=== PATIENT | female | born 1965 | race Caucasian/White ===

== ENCOUNTER 2017-09-10 20:14 | Emergency (ER) | payer MEDICAID ==
[~2017-09-10] VITALS: Ht 157.5 cm; Wt 65.0 kg
[~2017-09-10 20:14] MED LIST: CLON-570 PO; CLOZ100 PO; IBUP-2070 PO; ISON300 PO; PYRI50 PO
[2017-09-10] MEDS ORDERED: TRAZ-219 PO (20:32)
[2017-09-10] MEDS ORDERED: HALO50VI4 IM (20:32)
[2017-09-10] MEDS ORDERED: BENZ1TAB10 PO (20:32)
[2017-09-10 20:41] LABS: EOSINOPHILS % (AUTO) 2.2 % (1.0-6.0); HEMATOCRIT 42.1 % (36-46); HEMOGLOBIN 14.4 g/dL (12.0-16.0); LYMPHOCYTES # (AUTO) 2.1 K/uL (1.0-4.8); MEAN CORPUSCULAR HEMOGLOBIN 28.4 pg (26.0-34.0); MEAN CORPUSCULAR HGB CONC 34.1 G/dL (31.0-37.0); MEAN CORPUSCULAR VOLUME 83 fL (80-100); MONOCYTES # (AUTO) 0.8 K/uL (0.1-1.0); NEUTROPHILS # (AUTO) 8.8 K/uL (1.8-7.7); NEUTROPHILS % (AUTO) 72.8 % (40.0-70.0); PLATELET COUNT (AUTO) 202 K/uL (150-450); RED BLOOD CELL COUNT(AUTO) 5.05 MIL/uL (4.00-5.20); RED CELL DISTRIBUTION WIDTH 16.6 % (11.5-14.5)
[2017-09-10 20:49] LABS: ANION GAP 9 mmol/L (8-16); CALCIUM, TOTAL 9.4 mg/dL (8.8-10.5); CARBON DIOXIDE 29 mmol/L (22-29); CHLORIDE 100 mmol/L (98-107); CREATININE 0.59 mg/dL (0.60-1.30); GLOMERULAR FILTR. RATE CALC > 60 mL/min (>60); GLUCOSE,RANDOM 101 mg/dL (70-110); POTASSIUM 3.8 mmol/L (3.5-5.1); SODIUM SERUM 138 mmol/L (136-145); UREA NITROGEN, BLOOD 5 mg/dL (7-18)
[2017-09-10 20:55] LABS: ALANINE AMINOTRANSFERASE 18 U/L (12-78); ALBUMIN 3.4 g/dL (3.4-5.0); ALKALINE PHOSPHATASE 106 U/L (46-116); ASPARTATE AMINOTRANSFERASE 15 U/L (15-37); BILIRUBIN,TOTAL 0.4 mg/dL (0.1-1.0); TOTAL PROTEIN, SERUM 7.7 g/dL (6.4-8.2)
[2017-09-10 21:06] LABS: AMPHET/METH SCREEN,URINE NEGATIVE (NEGATIVE); BARBITURATE SCREEN, URINE NEGATIVE (NEGATIVE); BENZODIAZEPINES SCREEN,URINE NEGATIVE (NEGATIVE); CANNABINOID SCREEN,URINE NEGATIVE (NEGATIVE); COCAINE SCREEN,URINE NEGATIVE (NEGATIVE); METHADONE SCREEN, URINE NEGATIVE (NEGATIVE); OPIATE SCREEN,URINE NEGATIVE (NEGATIVE)
[2017-09-10 21:08] LABS: PHENCYCLIDINE SCREEN,URINE NEGATIVE (NEGATIVE)
[2017-09-10] MEDS ORDERED: HALOPERIDOL 5 MG TABLET PO ONE (21:30)
[2017-09-10] MEDS ORDERED: LORazepam 2 MG TABLET PO ONE (21:30)
[2017-09-10] MEDS ORDERED: BENZTROPINE MESYLATE 2 MG TABLET PO ONE (21:30)
[2017-09-10 22:46] VITALS: BP 125/73
== END 2017-09-10 23:16 | disposition home or self-care (01) ==
LOC: EMS 20:14
DX: F41.9 Anxiety disorder, unspecified (principal); F20.9 Schizophrenia, unspecified; F17.210 Nicotine dependence, cigarettes, uncomplicated
CPT/HCPCS: 36415; 80053; 80307; 85025; 99284; 99406; G0480

== ENCOUNTER 2017-09-12 18:48 | Inpatient (IN) | payer MEDICAID ==
[~2017-09-12] VITALS: Ht 165.1 cm; Wt 59.4 kg
[~2017-09-12 18:48] MED LIST changes: +BENZ1TAB10 PO; -CLON-570 PO; -CLOZ100 PO; +HALO50VI4 IM; -IBUP-2070 PO; -ISON300 PO; -PYRI50 PO; +TRAZ-219 PO
[2017-09-12] MEDS ORDERED: SODIUM CHLORIDE 0.9% 1,000 ML IV ONE (19:00)
[2017-09-12 19:04] LABS: GLUCOSE,POINT OF CARE 112 MG/DL (70-110)
[2017-09-12] MEDS ORDERED: BENZ2TAB10 PO (19:26)
[2017-09-12 19:28] LABS: BASOPHILS % (AUTO) 0.9 % (0.0-2.0); EOSINOPHILS % (AUTO) 3.7 % (1.0-6.0); HEMATOCRIT 41.3 % (36-46); LYMPHOCYTES # (AUTO) 1.6 K/uL (1.0-4.8); LYMPHOCYTES % (AUTO) 14.9 % (22.0-44.0); MEAN CORPUSCULAR HEMOGLOBIN 28.5 pg (26.0-34.0); MEAN CORPUSCULAR VOLUME 84 fL (80-100); MONOCYTES # (AUTO) 0.8 K/uL (0.1-1.0); MONOCYTES % (AUTO) 7.3 % (2.0-9.0); NEUTROPHILS # (AUTO) 7.8 K/uL (1.8-7.7); NEUTROPHILS % (AUTO) 73.2 % (40.0-70.0); PLATELET COUNT (AUTO) 192 K/uL (150-450); RED BLOOD CELL COUNT(AUTO) 4.93 MIL/uL (4.00-5.20); RED CELL DISTRIBUTION WIDTH 16.8 % (11.5-14.5)
[2017-09-12] MEDS ORDERED: ACTIVATED CHARCOAL 50 GM/240 ML SUSPENSION PO ONE (19:30)
[2017-09-12 19:38] LABS: ANION GAP 7 mmol/L (8-16); CALCIUM, TOTAL 9.1 mg/dL (8.8-10.5); CARBON DIOXIDE 29 mmol/L (22-29); CHLORIDE 98 mmol/L (98-107); CREATININE 0.59 mg/dL (0.60-1.30); GLOMERULAR FILTR. RATE CALC > 60 mL/min (>60); GLUCOSE,RANDOM 109 mg/dL (70-110); POTASSIUM 3.2 mmol/L (3.5-5.1); SODIUM SERUM 134 mmol/L (136-145); UREA NITROGEN, BLOOD 8 mg/dL (7-18)
[2017-09-12 19:38] LABS: AMPHET/METH SCREEN,URINE NEGATIVE (NEGATIVE); BARBITURATE SCREEN, URINE NEGATIVE (NEGATIVE); BENZODIAZEPINES SCREEN,URINE NEGATIVE (NEGATIVE); CANNABINOID SCREEN,URINE NEGATIVE (NEGATIVE); COCAINE SCREEN,URINE NEGATIVE (NEGATIVE); METHADONE SCREEN, URINE NEGATIVE (NEGATIVE); OPIATE SCREEN,URINE NEGATIVE (NEGATIVE)
[2017-09-12 19:39] LABS: PHENCYCLIDINE SCREEN,URINE NEGATIVE (NEGATIVE)
[2017-09-12 19:43] LABS: ALANINE AMINOTRANSFERASE 20 U/L (12-78); ALBUMIN 3.6 g/dL (3.4-5.0); ALKALINE PHOSPHATASE 102 U/L (46-116); ASPARTATE AMINOTRANSFERASE 17 U/L (15-37); BILIRUBIN,TOTAL 0.4 mg/dL (0.1-1.0); TOTAL PROTEIN, SERUM 7.7 g/dL (6.4-8.2)
[2017-09-12 19:44] LABS: ACETAMINOPHEN < 2 mcg/mL (10-30)
[2017-09-12 19:54] LABS: SALICYLATE 5.1 mg/dL (2.8-20.0)
[2017-09-12] MEDS ORDERED: POTASSIUM CHLORIDE 20 MEQ ER TABLET PO ONE (21:45)
[2017-09-13] MEDS ORDERED: ZOLPIDEM TARTRATE 10 MG TABLET PO PRN (02:45)
[2017-09-13] MEDS ORDERED: OLANZapine 5 MG RAPDIS TABLET PO PRN (02:45)
[2017-09-13 03:20] VITALS: BP 152/84
[2017-09-13] MEDS ORDERED: ONDANSETRON HCL 4 MG TABLET PO PRN (06:45)
[2017-09-13] MEDS ORDERED: IBUPROFEN 400 MG TABLET PO PRN (06:45)
[2017-09-13] MEDS ORDERED: PETROLATUM,WHITE 71 GM JELLY TP PRN (06:45)
[2017-09-13] MEDS ORDERED: CloNIDine HCL 0.1 MG TABLET PO PRN (06:45)
[2017-09-13] MEDS ORDERED: LOPERAMIDE HCL 2 MG CAPSULE PO PRN (06:45)
[2017-09-13] MEDS ORDERED: DOCUSATE SODIUM 100 MG CAPSULE PO PRN (06:45)
[2017-09-13] MEDS ORDERED: MAG HYDROX/AL HYDROX/SIMETH ES 30 ML SUSPENSION UDCUP PO PRN (06:45)
[2017-09-13] MEDS ORDERED: MAGNESIUM HYDROXIDE SUSPENSION 30 ML UDCUP PO PRN (06:45)
[2017-09-13] MEDS ORDERED: ALBUTEROL SULFATE HFA 90 MCG/PUFF 8 GM INHALER IH PRN (06:45)
[2017-09-13 08:43] VITALS: BP 132/80
[2017-09-13] MEDS: NICOTINE 14 MG/24 HOUR PATCH TD SCH (09:00)
[2017-09-13] MEDS: LORazepam 2 MG TABLET PO PRN (13:44)
[2017-09-13 17:00] VITALS: BP 146/83
[2017-09-14 07:08] LABS: HEMOGLOBIN A1C 5.6 % (4.5-6.2)
[2017-09-14 07:21] LABS: CHOL/HDL RATIO 3.6 (3.9-5.7); POTASSIUM 3.9 mmol/L (3.5-5.1)
[2017-09-14 08:30] VITALS: BP 137/74
[2017-09-14] MEDS: NICOTINE 14 MG/24 HOUR PATCH TD SCH (09:03)
[2017-09-14] MEDS: BENZTROPINE MESYLATE 1 MG TABLET PO SCH (16:22)
[2017-09-14] MEDS: OLANZapine 5 MG TABLET PO SCH (16:22)
[2017-09-14] MEDS: LORazepam 2 MG TABLET PO PRN ×2 (16:32→20:35)
[2017-09-14] MEDS: TraZODone HCL 150 MG TABLET PO SCH (20:29)
[2017-09-14 20:43] VITALS: BP 129/75
[2017-09-15 08:30] VITALS: BP 138/78
[2017-09-15] MEDS: OLANZapine 5 MG TABLET PO SCH ×2 (10:18→16:25)
[2017-09-15] MEDS: NICOTINE 14 MG/24 HOUR PATCH TD SCH (10:18)
[2017-09-15] MEDS: BENZTROPINE MESYLATE 1 MG TABLET PO SCH ×2 (10:18→16:25)
[2017-09-15 16:36] VITALS: BP 136/85
[2017-09-15] MEDS: TraZODone HCL 150 MG TABLET PO SCH (20:01)
[2017-09-16 04:20] VITALS: BP 132/93
[2017-09-16] MEDS: NICOTINE 14 MG/24 HOUR PATCH TD SCH (08:18)
[2017-09-16] MEDS: OLANZapine 5 MG TABLET PO SCH ×2 (08:18→16:57)
[2017-09-16] MEDS: BENZTROPINE MESYLATE 1 MG TABLET PO SCH ×2 (08:18→16:57)
[2017-09-16 08:30] VITALS: BP 157/87
[2017-09-16 17:00] VITALS: BP 141/87
[2017-09-16] MEDS: LORazepam 2 MG TABLET PO PRN (19:41)
[2017-09-16] MEDS: TraZODone HCL 150 MG TABLET PO SCH (20:48)
[2017-09-17] MEDS: BENZTROPINE MESYLATE 1 MG TABLET PO SCH (08:57)
[2017-09-17] MEDS: OLANZapine 5 MG TABLET PO SCH (08:57)
[2017-09-17] MEDS: NICOTINE 14 MG/24 HOUR PATCH TD SCH (08:58)
[2017-09-17 09:18] VITALS: BP 124/81
[2017-09-17] MEDS ORDERED: HALO100V4 IM (13:08)
[2017-09-17] MEDS ORDERED: OLAN5TAB2 PO (13:08)
[2017-09-17] MEDS ORDERED: TRAZ150 PO (13:08)
[2017-09-17] MEDS ORDERED: BENZ1TAB10 PO (13:08)
[2017-09-24] MEDS ORDERED: HALOPERIDOL DECANOATE 100 MG/ML VIAL IM SCH (09:00)
== END 2017-09-17 15:30 | disposition home or self-care (01) | DRG 750 ==
LOC: EMS 18:49 → 3EI 09-13 02:58
PROVIDERS: ADMIT Psychiatry & Neurology Child & Adolescent Psychiatry; ATTEND Psychiatry & Neurology Child & Adolescent Psychiatry
DX: F25.1 Schizoaffective disorder, depressive type (principal); E87.1 Hypo-osmolality and hyponatremia; F41.9 Anxiety disorder, unspecified; E87.6 Hypokalemia; F17.210 Nicotine dependence, cigarettes, uncomplicated; J44.9 Chronic obstructive pulmonary disease, unspecified; K21.9 Gastro-esophageal reflux disease without esophagitis; T50.902A Poisoning by unspecified drugs, medicaments and biological substances, intentional self-harm, initial encounter; F32.9 Major depressive disorder, single episode, unspecified; G47.00 Insomnia, unspecified; Z83.3 Family history of diabetes mellitus; Z82.49 Family history of ischemic heart disease and other diseases of the circulatory system; Y92.89 Other specified places as the place of occurrence of the external cause; Z91.5 Personal history of self-harm; Z88.8 Allergy status to other drugs, medicaments and biological substances; Z79.899 Other long term (current) drug therapy
CPT/HCPCS: 83036; 84132; 93005; 99285; G0480; G0481; J3535; J7030

== ENCOUNTER 2018-04-10 12:22 | Inpatient (IN) | payer MEDICAID, OTHER ==
[~2018-04-10] VITALS: Ht 162.6 cm; Wt 59.6 kg
[~2018-04-10 12:22] MED LIST changes: +HALO100V4 IM; -HALO50VI4 IM; +OLAN5TAB2 PO; -TRAZ-219 PO; +TRAZ150 PO
[2018-04-10 14:37] LABS: AMPHET/METH SCREEN,URINE NEGATIVE (NEGATIVE); BARBITURATE SCREEN, URINE NEGATIVE (NEGATIVE); BENZODIAZEPINES SCREEN,URINE NEGATIVE (NEGATIVE); CANNABINOID SCREEN,URINE NEGATIVE (NEGATIVE); COCAINE SCREEN,URINE NEGATIVE (NEGATIVE); METHADONE SCREEN, URINE NEGATIVE (NEGATIVE); OPIATE SCREEN,URINE NEGATIVE (NEGATIVE)
[2018-04-10 14:38] LABS: PHENCYCLIDINE SCREEN,URINE NEGATIVE (NEGATIVE)
[2018-04-10 15:56] LABS: BASOPHILS % (AUTO) 0.6 % (0.0-2.0); EOSINOPHILS % (AUTO) 1.6 % (1.0-6.0); HEMATOCRIT 41.2 % (36-46); HEMOGLOBIN 13.9 g/dL (12.0-16.0); LYMPHOCYTES # (AUTO) 2.1 K/uL (1.0-4.8); LYMPHOCYTES % (AUTO) 26.6 % (22.0-44.0); MEAN CORPUSCULAR HEMOGLOBIN 28.9 pg (26.0-34.0); MEAN CORPUSCULAR HGB CONC 33.6 G/dL (31.0-37.0); MEAN CORPUSCULAR VOLUME 86 fL (80-100); MONOCYTES # (AUTO) 0.5 K/uL (0.1-1.0); MONOCYTES % (AUTO) 6.6 % (2.0-9.0); NEUTROPHILS % (AUTO) 64.6 % (40.0-70.0); PLATELET COUNT (AUTO) 194 K/uL (150-450); RED BLOOD CELL COUNT(AUTO) 4.79 MIL/uL (4.00-5.20); RED CELL DISTRIBUTION WIDTH 15.2 % (11.5-14.5)
[2018-04-10 16:13] LABS: ANION GAP 4 mmol/L (8-16); CALCIUM, TOTAL 9.1 mg/dL (8.8-10.5); CARBON DIOXIDE 32 mmol/L (22-29); CHLORIDE 105 mmol/L (98-107); CREATININE 0.53 mg/dL (0.60-1.30); GLOMERULAR FILTR. RATE CALC > 60 mL/min (>60); GLUCOSE,RANDOM 101 mg/dL (70-110); POTASSIUM 3.8 mmol/L (3.5-5.1); SODIUM SERUM 141 mmol/L (136-145); UREA NITROGEN, BLOOD 7 mg/dL (7-18)
[2018-04-10 16:24] LABS: ALANINE AMINOTRANSFERASE 24 U/L (12-78); ALBUMIN 3.4 g/dL (3.4-5.0); ALKALINE PHOSPHATASE 95 U/L (46-116); ASPARTATE AMINOTRANSFERASE 23 U/L (15-37); BILIRUBIN,TOTAL 0.4 mg/dL (0.1-1.0); TOTAL PROTEIN, SERUM 7.3 g/dL (6.4-8.2)
[2018-04-10 18:25] VITALS: BP 136/88
[2018-04-10] MEDS ORDERED: PNEUMOCOCCAL VACCINE POLYVALENT 0.5 ML VIAL [PPSV23] IM ONE (19:15)
[2018-04-10] MEDS ORDERED: ALBUTEROL SULFATE HFA 90 MCG/PUFF 8 GM INHALER IH PRN (21:30)
[2018-04-10] MEDS ORDERED: CloNIDine HCL 0.1 MG TABLET PO PRN (21:30)
[2018-04-10] MEDS ORDERED: ONDANSETRON HCL 4 MG TABLET PO PRN (21:30)
[2018-04-10] MEDS ORDERED: ACETAMINOPHEN 325 MG TABLET PO PRN (21:30)
[2018-04-10] MEDS ORDERED: GuaiFENesin/D-METHORPHAN [SUGAR-FREE] 200-20MG/10 ML SYRUP UDCUP PO PRN (21:30)
[2018-04-10] MEDS ORDERED: PETROLATUM,WHITE 71 GM JELLY TP PRN (21:30)
[2018-04-10] MEDS ORDERED: DOCUSATE SODIUM 100 MG CAPSULE PO PRN (21:30)
[2018-04-10] MEDS ORDERED: NICOTINE 14 MG/24 HOUR PATCH TD PRN (21:30)
[2018-04-10] MEDS ORDERED: MAG HYDROX/AL HYDROX/SIMETH ES 30 ML SUSPENSION UDCUP PO PRN (21:30)
[2018-04-10] MEDS ORDERED: LOPERAMIDE HCL 2 MG CAPSULE PO PRN (21:30)
[2018-04-10] MEDS ORDERED: MAGNESIUM HYDROXIDE SUSPENSION 30 ML UDCUP PO PRN (21:30)
[2018-04-11 04:58] VITALS: BP 145/90
[2018-04-11 08:25] VITALS: BP 134/78
[2018-04-11 08:27] LABS: BASOPHILS % (AUTO) 0.6 % (0.0-2.0); EOSINOPHILS % (AUTO) 3.2 % (1.0-6.0); HEMATOCRIT 39.3 % (36-46); HEMOGLOBIN 13.5 g/dL (12.0-16.0); MEAN CORPUSCULAR HEMOGLOBIN 30.2 pg (26.0-34.0); MEAN CORPUSCULAR HGB CONC 34.3 G/dL (31.0-37.0); MEAN CORPUSCULAR VOLUME 88 fL (80-100); MONOCYTES # (AUTO) 0.6 K/uL (0.1-1.0); MONOCYTES % (AUTO) 9.5 % (2.0-9.0); NEUTROPHILS # (AUTO) 3.9 K/uL (1.8-7.7); NEUTROPHILS % (AUTO) 57.7 % (40.0-70.0); PLATELET COUNT (AUTO) 181 K/uL (150-450); RED BLOOD CELL COUNT(AUTO) 4.47 MIL/uL (4.00-5.20); RED CELL DISTRIBUTION WIDTH 15.2 % (11.5-14.5)
[2018-04-11 08:56] LABS: ALANINE AMINOTRANSFERASE 21 U/L (12-78); ALKALINE PHOSPHATASE 88 U/L (46-116); ANION GAP 4 mmol/L (8-16); ASPARTATE AMINOTRANSFERASE 19 U/L (15-37); BILIRUBIN,TOTAL 0.2 mg/dL (0.1-1.0); CALCIUM, TOTAL 8.8 mg/dL (8.8-10.5); CARBON DIOXIDE 30 mmol/L (22-29); CHLORIDE 105 mmol/L (98-107); CHOL/HDL RATIO 2.5 (3.9-5.7); CHOLESTEROL 101 mg/dL (131-200); CREATININE 0.57 mg/dL (0.60-1.30); GLOMERULAR FILTR. RATE CALC > 60 mL/min (>60); GLUCOSE,RANDOM 99 mg/dL (70-110); HDL CHOLESTEROL 41 mg/dL (40-60); LDL CHOL (CALC.) 48 mg/dL (0-130); POTASSIUM 4.1 mmol/L (3.5-5.1); SODIUM SERUM 139 mmol/L (136-145); THYROID STIMULATING HORMONE 0.29 uIU/mL (0.36-3.74); TOTAL PROTEIN, SERUM 6.7 g/dL (6.4-8.2); TRIGLYCERIDES 58 mg/dL (15-150); UREA NITROGEN, BLOOD 16 mg/dL (7-18)
[2018-04-11 09:08] LABS: HEMOGLOBIN A1C 6.1 % (4.5-6.2)
[2018-04-11] MEDS ORDERED: HALOPERIDOL 5 MG TABLET PO SCH (11:45)
[2018-04-11] MEDS: BENZTROPINE MESYLATE 1 MG TABLET PO SCH ×2 (12:36→16:45)
[2018-04-11 16:20] VITALS: BP 149/96
[2018-04-11] MEDS: LORazepam 2 MG TABLET PO PRN (16:45)
[2018-04-11] MEDS: OLANZapine 5 MG RAPDIS TABLET PO PRN (16:45)
[2018-04-11] MEDS: TraZODone HCL 150 MG TABLET PO SCH (20:35)
[2018-04-11] MEDS: PALIPERIDONE 6 MG ER TABLET PO SCH (20:35)
[2018-04-12 06:29] VITALS: BP 114/65
[2018-04-12 08:17] VITALS: BP 138/71
[2018-04-12] MEDS: LORazepam 2 MG TABLET PO PRN (09:31)
[2018-04-12] MEDS: BENZTROPINE MESYLATE 1 MG TABLET PO SCH ×2 (09:31→16:51)
[2018-04-12 16:06] VITALS: BP 158/98
[2018-04-12] MEDS: PALIPERIDONE 6 MG ER TABLET PO SCH (20:15)
[2018-04-12] MEDS: TraZODone HCL 150 MG TABLET PO SCH (20:15)
[2018-04-13 02:51] VITALS: BP 137/87
[2018-04-13] MEDS: LORazepam 2 MG TABLET PO PRN ×4 (02:53→18:45)
[2018-04-13] MEDS: OLANZapine 5 MG RAPDIS TABLET PO PRN ×2 (03:52→18:57)
[2018-04-13 08:12] VITALS: BP 137/87
[2018-04-13] MEDS: BENZTROPINE MESYLATE 1 MG TABLET PO SCH ×2 (08:51→17:35)
[2018-04-13 16:12] VITALS: BP 141/80
[2018-04-13] MEDS: PALIPERIDONE 6 MG ER TABLET PO SCH (20:10)
[2018-04-13] MEDS: TraZODone HCL 150 MG TABLET PO SCH (20:10)
[2018-04-13] MEDS: ZOLPIDEM TARTRATE 10 MG TABLET PO PRN (20:10)
[2018-04-14 00:21] VITALS: BP 138/85
[2018-04-14] MEDS: LORazepam 2 MG TABLET PO PRN (02:55)
[2018-04-14] MEDS: OLANZapine 5 MG RAPDIS TABLET PO PRN (02:55)
[2018-04-14] MEDS: BENZTROPINE MESYLATE 1 MG TABLET PO SCH ×2 (08:20→16:40)
[2018-04-14 08:30] VITALS: BP 157/98
[2018-04-14 14:23] VITALS: BP 139/88
[2018-04-14 16:16] VITALS: BP 130/73
[2018-04-14] MEDS: PALIPERIDONE 3 MG ER TABLET PO SCH (20:57)
[2018-04-14] MEDS: TraZODone HCL 150 MG TABLET PO SCH (21:09)
[2018-04-15 07:05] VITALS: BP 128/71
[2018-04-15 08:12] LABS: BASOPHILS % (AUTO) 0.6 % (0.0-2.0); EOSINOPHILS % (AUTO) 3.4 % (1.0-6.0); HEMATOCRIT 41.3 % (36-46); HEMOGLOBIN 13.7 g/dL (12.0-16.0); LYMPHOCYTES # (AUTO) 1.6 K/uL (1.0-4.8); LYMPHOCYTES % (AUTO) 23.6 % (22.0-44.0); MEAN CORPUSCULAR HEMOGLOBIN 29.3 pg (26.0-34.0); MEAN CORPUSCULAR HGB CONC 33.2 G/dL (31.0-37.0); MEAN CORPUSCULAR VOLUME 88 fL (80-100); MONOCYTES # (AUTO) 0.7 K/uL (0.1-1.0); MONOCYTES % (AUTO) 10.2 % (2.0-9.0); NEUTROPHILS # (AUTO) 4.3 K/uL (1.8-7.7); NEUTROPHILS % (AUTO) 62.2 % (40.0-70.0); PLATELET COUNT (AUTO) 168 K/uL (150-450); RED BLOOD CELL COUNT(AUTO) 4.69 MIL/uL (4.00-5.20); RED CELL DISTRIBUTION WIDTH 15.4 % (11.5-14.5)
[2018-04-15 08:16] LABS: APPEARANCE,URINE CLOUDY (CLEAR); BILIRUBIN,URINE NEGATIVE (NEGATIVE); GLUCOSE, URINE (UA) NEGATIVE (NEGATIVE); KETONES,URINE NEGATIVE (NEGATIVE); LEUKOCYTE ESTERASE ,URINE SMALL (NEGATIVE); NITRATE,URINE NEGATIVE (NEGATIVE); OCCULT BLOOD,URINE NEGATIVE (NEGATIVE); PROTEIN,URINE NEGATIVE (NEGATIVE); UROBILINOGEN,URINE 0.2 mg/dL (<=1.0)
[2018-04-15 08:19] VITALS: BP 126/71
[2018-04-15 08:20] LABS: AMPHET/METH SCREEN,URINE NEGATIVE (NEGATIVE); BARBITURATE SCREEN, URINE NEGATIVE (NEGATIVE); BENZODIAZEPINES SCREEN,URINE NEGATIVE (NEGATIVE); CANNABINOID SCREEN,URINE NEGATIVE (NEGATIVE); COCAINE SCREEN,URINE NEGATIVE (NEGATIVE); METHADONE SCREEN, URINE NEGATIVE (NEGATIVE); OPIATE SCREEN,URINE NEGATIVE (NEGATIVE)
[2018-04-15 08:22] LABS: PHENCYCLIDINE SCREEN,URINE NEGATIVE (NEGATIVE)
[2018-04-15 08:28] LABS: RBC,URINE None Seen /HPF (0-2); WBC,URINE 0-2 /HPF (0-5)
[2018-04-15 08:29] LABS: BACTERIA,URINE None Seen /HPF (None Seen); SQUAMOUS EPITHELIAL CELL,UR Moderate /LPF (None Seen)
[2018-04-15 08:44] LABS: ALANINE AMINOTRANSFERASE 29 U/L (12-78); ALKALINE PHOSPHATASE 83 U/L (46-116); ANION GAP 5 mmol/L (8-16); ASPARTATE AMINOTRANSFERASE 26 U/L (15-37); BILIRUBIN,TOTAL 0.4 mg/dL (0.1-1.0); CALCIUM, TOTAL 8.7 mg/dL (8.8-10.5); CARBON DIOXIDE 29 mmol/L (22-29); CHLORIDE 105 mmol/L (98-107); CREATININE 0.56 mg/dL (0.60-1.30); GLOMERULAR FILTR. RATE CALC > 60 mL/min (>60); GLUCOSE,RANDOM 94 mg/dL (70-110); POTASSIUM 4.2 mmol/L (3.5-5.1); SODIUM SERUM 139 mmol/L (136-145); THYROID STIMULATING HORMONE 0.55 uIU/mL (0.36-3.74); TOTAL PROTEIN, SERUM 6.5 g/dL (6.4-8.2); UREA NITROGEN, BLOOD 15 mg/dL (7-18)
[2018-04-15] MEDS: OLANZapine 5 MG RAPDIS TABLET PO PRN (08:46)
[2018-04-15] MEDS: LORazepam 2 MG TABLET PO PRN ×2 (08:46→17:48)
[2018-04-15] MEDS: BENZTROPINE MESYLATE 1 MG TABLET PO SCH ×2 (08:46→16:50)
[2018-04-15 16:30] VITALS: BP 123/73
[2018-04-15] MEDS: CEPHALEXIN MONOHYDRATE 250 MG CAPSULE PO SCH ×2 (16:49→20:12)
[2018-04-15] MEDS: PALIPERIDONE 3 MG ER TABLET PO SCH (20:12)
[2018-04-15] MEDS: TraZODone HCL 150 MG TABLET PO SCH (20:12)
[2018-04-16 06:39] VITALS: BP 132/72
[2018-04-16 08:17] VITALS: BP 115/72
[2018-04-16] MEDS: CEPHALEXIN MONOHYDRATE 250 MG CAPSULE PO SCH ×2 (08:42→16:51)
[2018-04-16] MEDS: BENZTROPINE MESYLATE 1 MG TABLET PO SCH ×2 (08:42→16:51)
[2018-04-16 16:18] VITALS: BP 134/75
[2018-04-16] MEDS: OLANZapine 5 MG RAPDIS TABLET PO PRN (16:51)
[2018-04-16] MEDS: LORazepam 2 MG TABLET PO PRN (16:52)
[2018-04-16] MEDS: PALIPERIDONE 3 MG ER TABLET PO SCH (20:35)
[2018-04-16] MEDS: TraZODone HCL 150 MG TABLET PO SCH (20:35)
[2018-04-16] MEDS: ZOLPIDEM TARTRATE 10 MG TABLET PO PRN (20:35)
[2018-04-17 06:24] VITALS: BP 120/72
[2018-04-17 07:56] LABS: APPEARANCE,URINE CLEAR (CLEAR); BILIRUBIN,URINE NEGATIVE (NEGATIVE); GLUCOSE, URINE (UA) NEGATIVE (NEGATIVE); KETONES,URINE NEGATIVE (NEGATIVE); LEUKOCYTE ESTERASE ,URINE NEGATIVE (NEGATIVE); NITRATE,URINE NEGATIVE (NEGATIVE); OCCULT BLOOD,URINE NEGATIVE (NEGATIVE); PROTEIN,URINE NEGATIVE (NEGATIVE); UROBILINOGEN,URINE 0.2 mg/dL (<=1.0)
[2018-04-17 08:16] VITALS: BP 106/62
[2018-04-17] MEDS: BENZTROPINE MESYLATE 1 MG TABLET PO SCH ×2 (08:41→16:36)
[2018-04-17] MEDS: CEPHALEXIN MONOHYDRATE 250 MG CAPSULE PO SCH ×2 (08:41→16:36)
[2018-04-17 10:50] VITALS: BP 114/70
[2018-04-17] MEDS: LORazepam 2 MG TABLET PO PRN ×2 (11:00→16:36)
[2018-04-17 16:35] VITALS: BP 131/87
[2018-04-17] MEDS: OLANZapine 5 MG RAPDIS TABLET PO PRN (16:36)
[2018-04-17] MEDS: TraZODone HCL 150 MG TABLET PO SCH (20:31)
[2018-04-17] MEDS: PALIPERIDONE 6 MG ER TABLET PO SCH (20:32)
[2018-04-18 06:33] VITALS: BP 125/72
[2018-04-18] MEDS: IBUPROFEN 400 MG TABLET PO PRN ×2 (07:08→22:42)
[2018-04-18 07:12] VITALS: BP 118/82
[2018-04-18 08:10] VITALS: BP 138/72
[2018-04-18] MEDS: CEPHALEXIN MONOHYDRATE 250 MG CAPSULE PO SCH ×2 (08:32→16:06)
[2018-04-18] MEDS: BENZTROPINE MESYLATE 1 MG TABLET PO SCH ×2 (08:32→16:06)
[2018-04-18] MEDS: CARBAMIDE PEROXIDE 6.5% 15 ML OTIC SOLUTION AS SCH ×2 (13:00→16:06)
[2018-04-18 16:07] VITALS: BP 115/68
[2018-04-18] MEDS: PALIPERIDONE 6 MG ER TABLET PO SCH (20:37)
[2018-04-18] MEDS: TraZODone HCL 150 MG TABLET PO SCH (20:37)
[2018-04-18 22:35] VITALS: BP 156/91
[2018-04-19] VITALS (7 sets, daily range): BP systolic 103–140; BP diastolic 68–92
[2018-04-19] MEDS: IBUPROFEN 400 MG TABLET PO PRN ×2 (07:39→17:20)
[2018-04-19] MEDS: CEPHALEXIN MONOHYDRATE 250 MG CAPSULE PO SCH ×2 (08:01→16:22)
[2018-04-19] MEDS: CARBAMIDE PEROXIDE 6.5% 15 ML OTIC SOLUTION AS SCH ×2 (08:01→17:10)
[2018-04-19] MEDS: BENZTROPINE MESYLATE 1 MG TABLET PO SCH ×2 (08:01→16:22)
[2018-04-19] MEDS: TraMADol HCL 50 MG TABLET PO PRN (13:28)
[2018-04-19] MEDS ORDERED: PALIPERIDONE PALMITATE 234 MG/1.5 ML SYRINGE IM SCH (16:00)
[2018-04-19] MEDS: CIPROFLOXACIN HCL 0.2%/HYDROCORT 1% 10 ML OTIC SUSPENSION AS SCH (16:23)
[2018-04-19] MEDS: TraZODone HCL 150 MG TABLET PO SCH (20:23)
[2018-04-19] MEDS: PALIPERIDONE 6 MG ER TABLET PO SCH (20:23)
[2018-04-19] MEDS: ZOLPIDEM TARTRATE 10 MG TABLET PO PRN (21:38)
[2018-04-20 06:04] VITALS: BP 128/84
[2018-04-20 07:28] VITALS: BP 126/81
[2018-04-20] MEDS: TraMADol HCL 50 MG TABLET PO PRN (07:30)
[2018-04-20 08:05] VITALS: BP 128/87
[2018-04-20 08:30] VITALS: BP 128/87
[2018-04-20] MEDS: BENZTROPINE MESYLATE 1 MG TABLET PO SCH (08:44)
[2018-04-20] MEDS: CEPHALEXIN MONOHYDRATE 250 MG CAPSULE PO SCH (08:44)
[2018-04-20] MEDS: CARBAMIDE PEROXIDE 6.5% 15 ML OTIC SOLUTION AS SCH (08:45)
[2018-04-20] MEDS: CIPROFLOXACIN HCL 0.2%/HYDROCORT 1% 10 ML OTIC SUSPENSION AS SCH (09:44)
[2018-04-20] MEDS ORDERED: PALI6 PO (10:22)
== END 2018-04-20 13:05 | disposition home or self-care (01) | DRG 750 ==
LOC: EMS 12:41 → B3A 16:36
PROVIDERS: ADMIT Psychiatry & Neurology Psychiatry; ATTEND Psychiatry & Neurology Psychiatry
DX: F25.0 Schizoaffective disorder, bipolar type (principal); R45.850 Homicidal ideations; Z91.19 Patient's noncompliance with other medical treatment and regimen; E05.90 Thyrotoxicosis, unspecified without thyrotoxic crisis or storm; F41.9 Anxiety disorder, unspecified; H66.90 Otitis media, unspecified, unspecified ear; J44.9 Chronic obstructive pulmonary disease, unspecified; K21.9 Gastro-esophageal reflux disease without esophagitis; N39.0 Urinary tract infection, site not specified; F17.210 Nicotine dependence, cigarettes, uncomplicated; Z91.5 Personal history of self-harm; Z28.21 Immunization not carried out because of patient refusal; Z88.5 Allergy status to narcotic agent; Z79.899 Other long term (current) drug therapy
CPT/HCPCS: 80307; 83036; 84439; 84443; 90686; 90732; G0480